=== PATIENT | male | born 1965 | race Caucasian/White ===

== ENCOUNTER → 2019-11-26 | Outpatient (CLI) | payer BC ==
[~2019-11-26] MED LIST: CATHETER FLUSH 10 ML SYR IV PRN; REGADENOSON 0.4 MG/5 ML SYR (LEXISCAN) IV ONE
[2019-11-26 08:12] VITALS: BP 145/82
--- NOTE | 2019-11-27 16:27 | Cardiology Stress Test Report ---
Stress Test Report Type of NM Stress Test: Test Type: LEXISCAN 0.4MG/5ML Date of Procedure/Referring: Date of Procedure: Nov 26, 2019 PCP Chacha Guardado Dnp Admitting Physician Jesus Guardado DO Indications: Chest pain, palpitations. Baseline Blood Pressure: Blood Pressure Systolic: 145 Blood Pressure Diastolic: 82 Summary & Conclusion: Summary: The patient was brought to the stress lab after informed consent was taken. Stress test was performed according to the Lexiscan protocol. 0.4 mg of IV Lexiscan was given. Please see Dr. Guardado's note for the stress test report. 10.44 mCi of Myoview were given for rest imaging and 30.5 mCi of Myoview given for stress imaging. Transient ischemic dilatation score 0.99, EF 57 percent. Normal wall motion. Normal myocardial perfusion imaging during rest and stress. Conclusion: Normal LV function with no wall motion abnormalities. Normal myocardial perfusion imaging during rest and stress. Jacque MEJÍA MD Nov 27, 2019 16:27
== END ==
LOC: CARD 07:15
PROVIDERS: ATTEND Nurse Practitioner Family
DX: R00.2 Palpitations (principal); R07.89 Other chest pain
CPT/HCPCS: 78452; 93017; A9502